=== PATIENT | male | born 1955 | race Caucasian/White ===

== ENCOUNTER 2016-09-23 09:00 | Day surgery (SDC) | payer OTHER ==
[~2016-09-23 09:00] MED LIST: LISINOPRIL/HCTZ PO
--- NOTE | 2016-09-23 11:41 | Provider's Discharge Care Plan ---
Problem, Goal, Plan Problem List 1. Colon polyps
--- NOTE | 2016-09-23 11:41 | Provider's Discharge Care Plan ---
Problem, Goal, Plan Problem List 1. Colon polyps
[2016-09-23 13:05] VITALS: BP 133/64
--- NOTE | 2016-09-23 13:39 | OPERATIVE REPORT ---
DATE OF SURGERY: 09/23/2016 SURGEON: Holland Parker MD PREOPERATIVE DIAGNOSIS: 1. History of colon polyps POSTOPERATIVE DIAGNOSIS: 1. Colon polyps PROCEDURE PERFORMED: 1. Colonoscopy with snare polypectomies ANESTHESIA: Total IV general. INDICATIONS: The patient is a 61-year-old man with previous colon polyps. SURGICAL TECHNIQUE: The patient was taken to the endoscopy suite, where total IV general was administered and the patient was placed in the left lateral decubitus position. The well-lubricated colonoscope was advanced the length colon under direct vision. The ileocecal valve was visualized. Just distal to the ileocecal valve, there was a polyp about 6 mm in diameter. It was protruding but generally sessile, without a pedicle. The polyp was encircled at its base and elevated well up off the mucosa. Short pulses of alternating cautery and cutting current were used to transect it, and the tissue was retrieved. On further withdrawal, there was a slightly smaller polyp of a similar nature, about 4 mm in diameter, noted at 65 cm, which was also removed with the cautery snare. Fragments of tissue were recovered. The rest of the colon was normal, including a retroflexed view of the rectum, and the patient left in good condition. No intraoperative complications were encountered.
== END 2016-09-23 13:22 | disposition home or self-care (01) ==
LOC: OR SRH 09:00 → SCU SRH 09:03 → OR SRH 11:00
PROVIDERS: Surgery
PROC: 0DBH8ZX Excision of Cecum, Via Natural or Artificial Opening Endoscopic, Diagnostic (ICD-10-PCS; principal; 2016-09-23 11:00)
PROC: 0DBM8ZX Excision of Descending Colon, Via Natural or Artificial Opening Endoscopic, Diagnostic (ICD-10-PCS; principal; 2016-09-23 11:00)
DX: Z12.11 Encounter for screening for malignant neoplasm of colon (principal); D12.0 Benign neoplasm of cecum; K63.5 Polyp of colon; Z86.010 Personal history of colon polyps; Z83.71 Family history of colonic polyps; I10 Essential (primary) hypertension
CPT/HCPCS: 29229; 29240; 50004; 60001; 82900; 83526